=== PATIENT | female | born 1950 | race Caucasian/White ===

== ENCOUNTER 2018-09-11 21:44 | Emergency (ER) | payer MEDICARE ==
[~2018-09-11] VITALS: Ht 162.6 cm; Wt 76.7 kg
[~2018-09-11 21:44] MED LIST: ATENOLOL50 MG PO; CEFUROXIME250 MG PO; CIPROFLOXACIN500 MG PO; Captopril PO; FLAGYL500 MG PO; PEPCID20 MG PO; ULTRACET TABLE1 EACH PO
[2018-09-11] MEDS ORDERED: LISINOPRIL 10 MG TAB ONE (22:07)
[2018-09-11] MEDS ORDERED: LISINOPRIL 10 MG TAB PO ONE (22:15)
[2018-09-11 22:23] LABS: CLARITY,URINE CLEAR (CLEAR); COLOR,URINE YELLOW (YELLOW)
[2018-09-11 22:24] LABS: BILIRUBIN,URINE NEGATIVE (NEGATIVE); KETONES,URINE NEGATIVE (NEGATIVE); LEUKOCYTE ESTERASE ,URINE NEGATIVE (NEGATIVE); NITRITE,URINE NEGATIVE (NEGATIVE); PROTEIN,URINE DIPSTICK NEGATIVE (NEGATIVE); URINE UROBILINOGEN 0.2 mg/dL (0.2 - 1)
--- NOTE | 2018-09-11 22:26 | Diagnostic Imaging Report ---
EXAMINATION: Head CT without contrast. HISTORY:Headache and dizziness. COMPARISON:None. TECHNIQUE: Multidetector axial images were obtained from the foramen magnum to the vertex without contrast. The images were reconstructed using brain and bone algorithms. Thin section brain images were reformatted into coronal and sagittal planes. Dose modulation, iterative reconstruction, and/or weight based adjustment of the mA/kV was utilized to reduce the radiation dose to as low as reasonably achievable. Intravenous contrast: None IMAGE QUALITY: Acceptable. FINDINGS: Skull/scalp: No lytic or blastic. lesions. No surgical changes. Parenchyma: Nonspecific bilateral frontoparietal patchy white matter hypodensity are likely related to small vessel ischemic changes. No acute hemorrhage, mass or acute major vascular territorial infarct. Arteries: No density suggestive of thrombosis. Dural sinuses: No abnormal density suggestive of thrombosis. Ventricles: No hydrocephalus or displacement. Extra-axial spaces: No abnormal density. Brain volume: Mild generalized cerebral volume loss. Craniocervical junction: No mass, Chiari malformation, or basilar invagination. Sella: Nonspecific 2 mm hyperdensity in the posterior aspect of pituitary gland may represent Rathke's cleft or adenoma. Paranasal/mastoid sinuses: Imaged portions unremarkable. IMPRESSION: No acute intracranial abnormality, particularly no acute hemorrhage or acute major vascular territorial infarct. Mild supratentorial white matter microvascular ischemic changes. Mild generalized cerebral volume loss. Signed by: Dr. Delia Garcia M.D. on 09/11/2018 10:23 PM
[2018-09-11 23:01] LABS: BACTERIA,URINE FEW /HPF; EPITHELIAL CELLS,URINE FEW /LPF; RBC,URINE 0-5 /HPF (0-5); WBC,URINE (MAN) 0-5 /HPF (0-5)
[2018-09-11 23:34] VITALS: BP 177/80
== END 2018-09-11 23:39 | disposition home or self-care (01) ==
LOC: ER 21:44
DX: R42 Dizziness and giddiness (principal); I10 Essential (primary) hypertension
CPT/HCPCS: 70450; 81001; 99283

== ENCOUNTER 2018-10-02 02:50 | Emergency (ER) | payer MEDICARE ==
[~2018-10-02] VITALS: Ht 162.6 cm; Wt 76.7 kg
--- OUTSIDE RECORDS SUMMARY | 2018-10-02 02:54 | XMS REPORT ---
Author Author [facility] Address Unknown Phone Unavailable Care Team Providers Care Civil Cad Tech Name Role Phone Ozzie SALAS Unavailable Unavailable Problems This patient has no known problems. Allergies, Adverse Reactions, Alerts This patient has no known allergies or adverse reactions. Medications This patient has no known medications. Results Test Description Test Time Test Comments Text Results Atomic Results Result Comments CT BRAIN WO 2018-09-11 22:18:00 [facility] [address] [address] Patient Name: TAWANNA GAO MR #: [id number] : 1950 Age/Sex: 68/F Req #: [id number] Adm Physician: Ordered by: CARRILLO SALAS MD Report #: [id number] Location: ER Room/Bed: Procedure: [id number] CT/CT BRAIN WO Exam Date: 09/11/18 Exam Time: 2208 REPORT STATUS: Signed EXAMINATION: Head CT without contrast. HISTORY:Headache and dizziness. COMPARISON:None. TECHNIQUE: Multidetector axial images were obtained from the foramen magnum to the vertex without contrast. The images were reconstructed using brain and bone algorithms. Thin section brain images were reformatted into coronal and sagittal planes. Dose modulation, iterative reconstruction, and/or weight based adjustment of the mA/kV was utilized to reduce the radiation dose to as low as reasonably achievable. Intravenous contrast: None IMAGE QUALITY: Acceptable. FINDINGS: Skull/scalp: No lytic or blastic. lesions. No surgical changes. Parenchyma: Nonspecific bilateral frontoparietal patchy white matter hypodensity are likely related to small vessel ischemic changes. No acute hemorrhage, mass or acute major vascular territorial infarct. Arteries: No density suggestive of thrombosis. Dural sinuses: No abnormal density suggestive of thrombosis. Ventricles: No hydrocephalus or displacement. Extra-axial spaces: No abnormal density. Brain volume: Mild generalized cerebral volume loss. Craniocervical junction: No mass, Chiari malformation, or basilar invagination. Sella: Nonspecific 2 mm hyperdensity in the posterior aspect of pituitary gland may represent Rathke's cleft or adenoma. Paranasal/mastoid sinuses: Imaged portions unremarkable. IMPRESSION: No acute intracranial abnormality, particularly no acute hemorrhage or acute major vascular territorial infarct. Mild supratentorial white matter microvascular ischemic changes. Mild generalized cerebral volume loss. Signed by: Dr. Delia Chauhan M.D. on 09/11/2018 10:23 PM Dictated By: DELIA CHAUHAN MD 22 Transcribed By: NICOLE on 09/11/182222 COPY TO: CARRILLO SALAS MD
== END 2018-10-02 03:15 | disposition left against medical advice (07) ==
LOC: ER 02:50
DX: I10 Essential (primary) hypertension (principal)

== ENCOUNTER 2019-01-13 09:54 | Emergency (ER) | payer MEDICARE ==
[~2019-01-13] VITALS: Ht 162.6 cm; Wt 76.7 kg
[2019-01-13] MEDS ORDERED: HYDROCHLOROTHIA25 MG PO (11:37)
[2019-01-13 11:49] VITALS: BP 168/67
[2019-01-14] MEDS ORDERED: HYDROCHLOROTHIAZIDE 25 MG TAB PO ONE (09:00)
== END 2019-01-13 12:13 | disposition home or self-care (01) ==
LOC: ER 09:54
DX: I10 Essential (primary) hypertension (principal)
CPT/HCPCS: 99283

== ENCOUNTER 2019-02-23 23:50 | Emergency (ER) | payer MEDICARE ==
[~2019-02-23] VITALS: Ht 162.6 cm; Wt 76.7 kg
[~2019-02-23 23:50] MED LIST changes: +HYDROCHLOROTHIA25 MG PO
[2019-02-24] MEDS: HYDRALAZINE HCL 25 MG TAB PO ONE (00:19)
[2019-02-24 01:09] VITALS: BP 138/58
== END 2019-02-24 01:15 | disposition home or self-care (01) ==
LOC: ER 23:50
DX: I16.0 Hypertensive urgency (principal); I10 Essential (primary) hypertension; R00.1 Bradycardia, unspecified
CPT/HCPCS: 93005; 99283

== ENCOUNTER 2019-02-24 05:50 | Emergency (ER) | payer MEDICARE ==
[~2019-02-24] VITALS: Ht 162.6 cm; Wt 76.7 kg
[2019-02-24 06:22] VITALS: BP 160/87
== END 2019-02-24 06:29 | disposition home or self-care (01) ==
LOC: ER 05:50
DX: I10 Essential (primary) hypertension (principal); K58.9 Irritable bowel syndrome, unspecified
CPT/HCPCS: 99283

== ENCOUNTER 2019-05-29 11:16 | Emergency (ER) | payer MEDICARE ==
[~2019-05-29] VITALS: Ht 162.6 cm; Wt 76.7 kg
[2019-05-29 12:03] LABS: BILIRUBIN,URINE NEGATIVE (NEGATIVE); COLOR,URINE YELLOW (YELLOW); KETONES,URINE NEGATIVE (NEGATIVE); LEUKOCYTE ESTERASE ,URINE MODERATE (NEGATIVE); NITRITE,URINE NEGATIVE (NEGATIVE); PROTEIN,URINE DIPSTICK NEGATIVE (NEGATIVE); URINE UROBILINOGEN 0.2 mg/dL (0.2 - 1)
[2019-05-29 12:04] LABS: CLARITY,URINE CLEAR (CLEAR)
[2019-05-29 12:16] LABS: BACTERIA,URINE FEW /HPF; EPITHELIAL CELLS,URINE FEW /LPF; RBC,URINE 0-5 /HPF (0-5); WBC,URINE (MAN) 0-5 /HPF (0-5)
[2019-05-29 12:47] VITALS: BP 169/68
== END 2019-05-29 13:12 | disposition home or self-care (01) ==
LOC: ER 11:16
DX: R30.0 Dysuria (principal); K21.9 Gastro-esophageal reflux disease without esophagitis; I10 Essential (primary) hypertension
CPT/HCPCS: 81001; 87086; 99282

== ENCOUNTER 2019-08-03 15:48 | Emergency (ER) | payer MEDICARE ==
[~2019-08-03] VITALS: Ht 162.6 cm; Wt 76.7 kg
[2019-08-03] MEDS ORDERED: HYDRALAZINE HCL 20 MG/ML VIAL IV STA (16:06)
[2019-08-03 16:33] LABS: BASOPHILS % 0.4 % (0.0-1.0); EOSINOPHILS # (AUTO) 0.1 (0.0-0.4); HEMATOCRIT 40.8 % (34.2-44.1); HEMOGLOBIN 13.4 g/dL (12.0-16.0); LYMPHOCYTES # (AUTO) 1.4 (1.0-3.2); LYMPHOCYTES % 26.2 % (18.0-39.1); MEAN CORPUSCULAR HGB CONC 32.8 g/dL (31-35); MEAN CORPUSCULAR VOLUME 88.3 fL (81-99); MONOCYTES # (AUTO) 0.5 (0.2-0.8); MONOCYTES % 8.3 % (4.4-11.3); NEUTROPHILS # (AUTO) 3.4 (2.1-6.9); NEUTROPHILS % 62.9 % (38.7-80.0); PLATELET COUNT 253 x10e3/uL (140-360); RED BLOOD COUNT 4.62 x10e6/uL (3.6-5.1); RED CELL DISTRIBUTION WIDTH 12.5 % (11.7-14.4)
[2019-08-03 16:53] LABS: ALANINE AMINOTRANSFERASE 21 IU/L (0-55); ALBUMIN/GLOBULIN RATIO 1.4 (0.8-2.0); ALKALINE PHOSPHATASE 69 IU/L (40-150); ANION GAP 13.9 mmol/L (8-16); BLOOD UREA NITROGEN 11 mg/dL (7-26); BUN/CREATININE RATIO 15 (6-25); CALCIUM 9.9 mg/dL (8.4-10.2); CARBON DIOXIDE 29 mmol/L (22-29); CHLORIDE 97 mmol/L (98-107); CREATINE KINASE 93 IU/L (29-168); CREATININE, SERUM 0.71 mg/dL (0.57-1.11); EST GLOMERULAR FILTRATION RATE > 60 ML/MIN (60-); GLUCOSE 95 mg/dL (74-118); POTASSIUM 3.9 mmol/L (3.5-5.1); SODIUM 136 mmol/L (136-145)
[2019-08-03] MEDS ORDERED: AMLODIPINE BESYLATE 5 MG TAB PO ONE (17:00)
[2019-08-03 17:31] LABS: BILIRUBIN,URINE NEGATIVE (NEGATIVE); CLARITY,URINE HAZY (CLEAR); COLOR,URINE YELLOW (YELLOW); KETONES,URINE NEGATIVE (NEGATIVE); LEUKOCYTE ESTERASE ,URINE SMALL (NEGATIVE); NITRITE,URINE NEGATIVE (NEGATIVE); PROTEIN,URINE DIPSTICK NEGATIVE (NEGATIVE); URINE UROBILINOGEN 0.2 mg/dL (0.2 - 1)
[2019-08-03 17:32] LABS: BACTERIA,URINE FEW /HPF; EPITHELIAL CELLS,URINE FEW /LPF
[2019-08-03] MEDS ORDERED: CEFTRIAXONE SOD 1 GM VIAL IV ONE (17:45)
[2019-08-03] MEDS ORDERED: CEFTRIAXONE SOD 1 GM/NS 50 ML 50 ML IV ONE (18:00)
== END 2019-08-03 18:19 | disposition home or self-care (01) ==
LOC: ER 15:48
DX: R51 Headache (principal); I10 Essential (primary) hypertension; K21.9 Gastro-esophageal reflux disease without esophagitis
CPT/HCPCS: 36415; 80053; 81001; 82550; 82553; 83880; 84484; 85025; 87400; 93005; 99284; J0360; J0696

== ENCOUNTER 2019-08-05 05:16 | Emergency (ER) | payer MEDICARE ==
[~2019-08-05] VITALS: Ht 162.6 cm; Wt 76.7 kg
[2019-08-05] MEDS ORDERED: CLONIDINE HCL 0.2 MG TAB PO ONE (05:30)
[2019-08-05 06:22] VITALS: BP 125/72
== END 2019-08-05 06:20 | disposition home or self-care (01) ==
LOC: ER 05:16
DX: I16.0 Hypertensive urgency (principal); K21.9 Gastro-esophageal reflux disease without esophagitis; K58.9 Irritable bowel syndrome, unspecified
CPT/HCPCS: 99282

== ENCOUNTER 2020-09-12 00:46 | Observation (INO) | payer MEDICARE ==
[~2020-09-12] VITALS: Ht 162.6 cm; Wt 76.7 kg
[2020-09-12] MEDS ORDERED: LIDOCAINE 1% W/EPINEPHRINE 20 ML VIAL ONE ×2 (00:58→15:07)
[2020-09-12] MEDS ORDERED: LIDOCAINE/PRILOCAINE 2.5-2.5% KIT ONE (01:22)
[2020-09-12 01:38] LABS: INR 0.95; PROTHROMBIN TIME 13.2 seconds (11.9-14.5)
[2020-09-12 01:45] LABS: BASOPHILS % 0.6 % (0.0-1.0); EOSINOPHILS # (AUTO) 0.2 (0.0-0.4); EOSINOPHILS % 2.5 % (0.0-6.0); HEMATOCRIT 39.4 % (34.2-44.1); HEMOGLOBIN 12.9 g/dL (12.0-16.0); LYMPHOCYTES # (AUTO) 1.7 (1.0-3.2); LYMPHOCYTES % 26.8 % (18.0-39.1); MEAN CORPUSCULAR HEMOGLOBIN 29.5 pg (28-32); MEAN CORPUSCULAR HGB CONC 32.7 g/dL (31-35); MONOCYTES # (AUTO) 0.6 (0.2-0.8); MONOCYTES % 9.7 % (4.4-11.3); NEUTROPHILS # (AUTO) 3.8 (2.1-6.9); NEUTROPHILS % 60.2 % (38.7-80.0); PLATELET COUNT 215 x10e3/uL (140-360); RED BLOOD COUNT 4.38 x10e6/uL (3.6-5.1); RED CELL DISTRIBUTION WIDTH 12.5 % (11.7-14.4)
[2020-09-12 01:48] LABS: ALANINE AMINOTRANSFERASE 28 IU/L (0-55); ALBUMIN 4.2 g/dL (3.5-5.0); ALBUMIN/GLOBULIN RATIO 1.4 (0.8-2.0); ALKALINE PHOSPHATASE 79 IU/L (40-150); ANION GAP 14.3 mmol/L (8-16); BLOOD UREA NITROGEN 16 mg/dL (7-26); BUN/CREATININE RATIO 22 (6-25); CALCIUM 9.3 mg/dL (8.4-10.2); CARBON DIOXIDE 28 mmol/L (22-29); CHLORIDE 102 mmol/L (98-107); CREATININE, SERUM 0.74 mg/dL (0.57-1.11); EST GLOMERULAR FILTRATION RATE > 60 ML/MIN (60-); GLUCOSE 103 mg/dL (74-118); POTASSIUM 4.3 mmol/L (3.5-5.1); SODIUM 140 mmol/L (136-145)
[2020-09-12] MEDS ORDERED: LACTATED RINGER'S 1,000 ML ONE (03:01)
[2020-09-12 05:24] LABS: HEMATOCRIT 35.9 % (34.2-44.1); HEMOGLOBIN 11.6 g/dL (12.0-16.0)
[2020-09-12 07:36] VITALS: BP 162/61
[2020-09-12 11:19] VITALS: BP 158/62
[2020-09-12] MEDS ORDERED: PROPOFOL IV EMULSION 10 MG/ML 20 ML VIAL ONE (13:32)
[2020-09-12] MEDS ORDERED: ONDANSETRON HCL INJ 2MG/ML 2ML 2 MG/ML VIAL ONE (13:32)
[2020-09-12] MEDS ORDERED: SEVOFLURANE INHAL SOLN 250 ML PEN BTL ONE (13:32)
[2020-09-12] MEDS ORDERED: LIDOCAINE HCL 2% LOCAL INJ 5 ML SDV VIAL INJ ONE (13:32)
[2020-09-12] MEDS ORDERED: EPHEDRINE SULFATE INJ 50 MG/ML VIAL ONE (13:32)
[2020-09-12] MEDS ORDERED: FENTANYL CITRATE/PF 100MCG/2 ML INJ ONE (13:40)
[2020-09-12] MEDS ORDERED: LEVOFLOXACIN 500MG/D5W 100ML 100 ML IV ONE (14:00)
[2020-09-12] MEDS ORDERED: CLINDAMYCIN 600MG / 50ML 50 ML IV ONE (14:00)
[2020-09-12] MEDS ORDERED: VANCOMYCIN 1GM/NS 250 ML 250 ML IV ONE (14:00)
[2020-09-12] MEDS ORDERED: HYDROGEN PEROXIDE 120 ML BTL ONE (14:14)
[2020-09-12] MEDS ORDERED: BUPIVACAINE 0.25% 30ML SDV ONE (14:14)
[2020-09-12] MEDS ORDERED: ACETAMINOPHEN 1000 MG/100 ML 100 ML IV ONE (14:44)
[2020-09-12] MEDS ORDERED: MUPIROCIN 2% OINT 22 GM TUBE ONE (15:42)
[2020-09-12] MEDS ORDERED: TRAMADOL HCL 50 MG TAB PO PRN (16:00)
[2020-09-12] MEDS ORDERED: PANTOPRAZOLE 40 MG 10ML VIAL IV SCH (16:00)
[2020-09-12] MEDS ORDERED: ONDANSETRON HCL INJ 2MG/ML 2ML 2 MG/ML VIAL IV PRN ×2 (16:00)
[2020-09-12 16:30] VITALS: BP 146/59
[2020-09-12] MEDS: DEXTROSE 5%/LACTATED RINGERS 1,000 ML IV SCH (16:31)
[2020-09-12 17:07] VITALS: BP 146/59
[2020-09-12] MEDS: VANCOMYCIN 1GM/NS 250 ML 250 ML IV SCH (18:00)
[2020-09-12] MEDS ORDERED: PIPERACILLIN/TAZOBAC 3.375 GM in SODIUM CHLORIDE 0.9% 50ML 50 ML IV SCH (18:00)
[2020-09-12] MEDS ORDERED: COREG3.125 MG PO (18:50)
[2020-09-12] MEDS ORDERED: LOSARTAN POTASS25 MG PO (18:50)
[2020-09-12 20:00] VITALS: BP 130/63
[2020-09-12 20:30] VITALS: BP 130/63
[2020-09-12] MEDS ORDERED: CHLORASEPTIC SPRAY 177 ML BTL MM PRN (20:30)
[2020-09-12] MEDS: CEPACOL SORE THROAT LOZENGES PO PRN (20:50)
[2020-09-12] MEDS ORDERED: HYDRALAZINE HCL 20 MG/ML VIAL IV PRN (22:00)
[2020-09-12] MEDS: PIPERACILLIN/TAZOBAC 3.375 GM in SODIUM CHLORIDE 0.9% 50ML 50 ML IV SCH (23:20)
[2020-09-13] VITALS: BP 133/55
[2020-09-13] MEDS: CEPACOL SORE THROAT LOZENGES PO PRN (00:50)
[2020-09-13 04:00] VITALS: BP 142/73
[2020-09-13] MEDS: VANCOMYCIN 1GM/NS 250 ML 250 ML IV SCH ×2 (04:53→16:47)
[2020-09-13 05:23] LABS: BASOPHILS % 0.7 % (0.0-1.0); EOSINOPHILS # (AUTO) 0.1 (0.0-0.4); EOSINOPHILS % 2.6 % (0.0-6.0); HEMATOCRIT 33.8 % (34.2-44.1); HEMOGLOBIN 10.8 g/dL (12.0-16.0); LYMPHOCYTES # (AUTO) 1.5 (1.0-3.2); LYMPHOCYTES % 27.8 % (18.0-39.1); MEAN CORPUSCULAR HEMOGLOBIN 29.8 pg (28-32); MEAN CORPUSCULAR VOLUME 93.1 fL (81-99); MONOCYTES # (AUTO) 0.6 (0.2-0.8); MONOCYTES % 10.3 % (4.4-11.3); NEUTROPHILS # (AUTO) 3.2 (2.1-6.9); NEUTROPHILS % 58.4 % (38.7-80.0); PLATELET COUNT 189 x10e3/uL (140-360); RED BLOOD COUNT 3.63 x10e6/uL (3.6-5.1); RED CELL DISTRIBUTION WIDTH 12.6 % (11.7-14.4)
[2020-09-13] MEDS: PIPERACILLIN/TAZOBAC 3.375 GM in SODIUM CHLORIDE 0.9% 50ML 50 ML IV SCH ×2 (06:38→14:46)
[2020-09-13 07:26] VITALS: BP 153/70
[2020-09-13 09:45] VITALS: BP 153/70
[2020-09-13 11:35] VITALS: BP 146/63
[2020-09-13] MEDS: DEXTROSE 5%/LACTATED RINGERS 1,000 ML IV SCH (11:46)
[2020-09-13] MEDS ORDERED: KEFLEX125 MG/5 M PO (15:24)
[2020-09-13 15:58] VITALS: BP 181/73
== END 2020-09-13 18:50 | disposition home or self-care (01) ==
LOC: ER 01:06 → ERHOLD 05:23 → MED/SURG 07:04
PROVIDERS: ADMIT Internal Medicine; ATTEND Internal Medicine
DX: S01.01XA Laceration without foreign body of scalp, initial encounter (principal); Y93.89 Activity, other specified; K21.9 Gastro-esophageal reflux disease without esophagitis; W10.8XXA Fall (on) (from) other stairs and steps, initial encounter; Y92.019 Unspecified place in single-family (private) house as the place of occurrence of the external cause; I10 Essential (primary) hypertension; Z88.2 Allergy status to sulfonamides; Z88.8 Allergy status to other drugs, medicaments and biological substances; Z90.49 Acquired absence of other specified parts of digestive tract; D62 Acute posthemorrhagic anemia; Z20.822 Contact with and (suspected) exposure to COVID-19; W01.198A Fall on same level from slipping, tripping and stumbling with subsequent striking against other object, initial encounter
CPT/HCPCS: 12001; 13121; 36415 ×2; 70450; 71045; 72125; 72170; 80053; 85014; 85018; 85025 ×2; 85610; 86850; 86900; 93005; 99284; C9113; G0378 ×2; J0131; J1956; J2001; J2405; J2543 ×2; J2704; J3010; J3370 ×2; J7121 ×3; U0002

== ENCOUNTER 2020-12-13 13:57 | Inpatient (IN) | payer MEDICARE ==
[~2020-12-13] VITALS: Ht 160 cm; Wt 79.4 kg
[~2020-12-13 13:57] MED LIST changes: +COREG3.125 MG PO; +KEFLEX125 MG/5 M PO; +LOSARTAN POTASS25 MG PO; +PHENYLEPHRINE HCL 1% 10 MG/ML VIAL ONE
[2020-12-13] MEDS ORDERED: SODIUM CHLORIDE 0.9% 1000ML 1,000 ML IV STA (14:27)
[2020-12-13 14:46] LABS: BASOPHILS % 0.2 % (0.0-1.0); EOSINOPHILS % 0.1 % (0.0-6.0); HEMATOCRIT 41.9 % (34.2-44.1); HEMOGLOBIN 13.9 g/dL (12.0-16.0); LYMPHOCYTES % 5.1 % (18.0-39.1); MEAN CORPUSCULAR HEMOGLOBIN 29.2 pg (28-32); MEAN CORPUSCULAR HGB CONC 33.2 g/dL (31-35); MONOCYTES % 5.3 % (4.4-11.3); NEUTROPHILS # (AUTO) 16.6 (2.1-6.9); NEUTROPHILS % 88.8 % (38.7-80.0); PLATELET COUNT 230 x10e3/uL (140-360); RED BLOOD COUNT 4.76 x10e6/uL (3.6-5.1); RED CELL DISTRIBUTION WIDTH 13.2 % (11.7-14.4)
[2020-12-13 15:04] LABS: ALBUMIN 3.8 g/dL (3.5-5.0); ANION GAP 16.7 mmol/L (8-16); CALCIUM 9.3 mg/dL (8.4-10.2); CREATININE, SERUM 1.74 mg/dL (0.57-1.11); POTASSIUM 3.7 mmol/L (3.5-5.1)
[2020-12-13 17:27] LABS: CLARITY,URINE CLOUDY (CLEAR); COLOR,URINE YELLOW (YELLOW); KETONES,URINE TRACE (NEGATIVE); LEUKOCYTE ESTERASE ,URINE TRACE (NEGATIVE); NITRITE,URINE NEGATIVE (NEGATIVE); PROTEIN,URINE DIPSTICK 2+ (NEGATIVE); URINE UROBILINOGEN 0.2 mg/dL (0.2 - 1)
[2020-12-13] MEDS ORDERED: NITROFURANTOIN100 M1 (17:29)
[2020-12-13] MEDS ORDERED: AMLODIPINE BESYL5 MG PO (17:29)
[2020-12-13] MEDS ORDERED: SODIUM CHLORIDE 0.9% 1000ML 1,000 ML IV SCH (17:30)
[2020-12-13] MEDS ORDERED: ONDANSETRON HCL INJ 2MG/ML 2ML 2 MG/ML VIAL IV PRN (17:30)
[2020-12-13] MEDS ORDERED: MORPHINE SULFATE INJ 4 MG/ML INJ 1ML IV PRN (17:30)
[2020-12-13] MEDS ORDERED: MORPHINE SULFATE INJ 2 MG/ML SYR IV PRN (17:30)
[2020-12-13 17:33] LABS: RBC,URINE 0-5 /HPF (0-5)
[2020-12-13 17:34] LABS: BACTERIA,URINE MODERATE /HPF; EPITHELIAL CELLS,URINE FEW /LPF
[2020-12-13] MEDS: CEFEPIME 1 GM in SODIUM CHLORIDE 0.9% 50ML 50 ML IV SCH (18:00)
[2020-12-13 20:45] VITALS: BP 123/89
[2020-12-13] MEDS: METRONIDAZOLE 500MG/NS 100ML 100 ML IV SCH (22:13)
[2020-12-13] MEDS: SODIUM CHLORIDE 0.9% 1000ML 1,000 ML IV SCH (22:13)
[2020-12-13 22:22] VITALS: BP_SYST 119; BP_SYST 123; BP_DIAS 65; BP_DIAS 89
[2020-12-13 22:26] VITALS: BP 119/65
[2020-12-14] VITALS (9 sets, daily range): BP systolic 122–153; BP diastolic 50–77
[2020-12-14 05:12] LABS: BASOPHILS % 0.1 % (0.0-1.0); EOSINOPHILS # (AUTO) 0.1 (0.0-0.4); EOSINOPHILS % 0.6 % (0.0-6.0); HEMATOCRIT 39.2 % (34.2-44.1); HEMOGLOBIN 12.6 g/dL (12.0-16.0); LYMPHOCYTES # (AUTO) 1.2 (1.0-3.2); LYMPHOCYTES % 9.5 % (18.0-39.1); MEAN CORPUSCULAR HEMOGLOBIN 28.6 pg (28-32); MEAN CORPUSCULAR HGB CONC 32.1 g/dL (31-35); MEAN CORPUSCULAR VOLUME 88.9 fL (81-99); MONOCYTES # (AUTO) 0.5 (0.2-0.8); MONOCYTES % 4.4 % (4.4-11.3); NEUTROPHILS # (AUTO) 10.4 (2.1-6.9); NEUTROPHILS % 84.8 % (38.7-80.0); PLATELET COUNT 234 x10e3/uL (140-360); RED BLOOD COUNT 4.41 x10e6/uL (3.6-5.1); RED CELL DISTRIBUTION WIDTH 13.2 % (11.7-14.4)
[2020-12-14] MEDS: CEFEPIME 1 GM in SODIUM CHLORIDE 0.9% 50ML 50 ML IV SCH ×2 (05:23→17:08)
[2020-12-14 05:26] LABS: ALBUMIN 3.1 g/dL (3.5-5.0); ALBUMIN/GLOBULIN RATIO 0.9 (0.8-2.0); ANION GAP 15.5 mmol/L (8-16); CALCIUM 8.4 mg/dL (8.4-10.2); CREATININE, SERUM 0.95 mg/dL (0.57-1.11); POTASSIUM 3.5 mmol/L (3.5-5.1)
[2020-12-14] MEDS: METRONIDAZOLE 500MG/NS 100ML 100 ML IV SCH ×3 (05:35→21:35)
[2020-12-14] MEDS: SODIUM CHLORIDE 0.9% 1000ML 1,000 ML IV SCH ×2 (07:15→16:41)
[2020-12-14] MEDS ORDERED: BUPIVACAINE 0.25% 30ML SDV ONE (10:13)
[2020-12-14] MEDS ORDERED: LIDOCAINE 1% W/EPINEPHRINE 20 ML VIAL ONE (10:13)
[2020-12-14] MEDS ORDERED: HYDROCODONE/APAP 7.5MG-325MG 1 EA TAB PO PRN (12:00)
[2020-12-14] MEDS ORDERED: ACETAMINOPHEN 1000 MG/100 ML IV PRN (12:00)
[2020-12-14] MEDS ORDERED: HYDROMORPHONE 1MG/1ML INJ IV PRN (12:00)
[2020-12-14] MEDS ORDERED: GLYCOPYRROLATE INJ 0.2 MG/ML VIAL ONE (12:22)
[2020-12-14] MEDS ORDERED: PROPOFOL IV EMULSION 10 MG/ML 20 ML VIAL ONE (12:22)
[2020-12-14] MEDS ORDERED: LIDOCAINE HCL 2% LOCAL INJ 5 ML SDV VIAL INJ ONE (12:22)
[2020-12-14] MEDS ORDERED: DEXAMETHASONE SOD PHOS INJ 4 MG/ML VIAL ONE (12:22)
[2020-12-14] MEDS ORDERED: ONDANSETRON HCL INJ 2MG/ML 2ML 2 MG/ML VIAL ONE (12:22)
[2020-12-14] MEDS ORDERED: ROCURONIUM BROMIDE 10 MG/ML 5ML VIAL IV ONE (12:22)
[2020-12-14] MEDS ORDERED: SEVOFLURANE INHAL SOLN 250 ML PEN BTL ONE (12:22)
[2020-12-14] MEDS ORDERED: POVIDONE IODINE 0.05% 0.05 % ML PO ONE (12:22)
[2020-12-14] MEDS ORDERED: NEOSTIGMINE 1 MG/ML 10ML VIAL ONE (12:22)
[2020-12-14] MEDS ORDERED: MIDAZOLAM HCL 2 MG/2 ML VIAL ONE (13:12)
[2020-12-14] MEDS ORDERED: FENTANYL CITRATE/PF 100MCG/2 ML INJ ONE (13:12)
[2020-12-14] MEDS ORDERED: HYDRALAZINE HCL 20 MG/ML VIAL IV PRN (15:00)
[2020-12-14] MEDS ORDERED: ACETAMINOPHEN 325 MG TAB PO PRN (15:00)
[2020-12-14] MEDS: CARVEDILOL 3.125 MG TAB PO SCH (17:08)
[2020-12-15] MEDS: SODIUM CHLORIDE 0.9% 1000ML 1,000 ML IV SCH ×2 (03:15→13:12)
[2020-12-15 04:00] VITALS: BP 132/69
[2020-12-15] MEDS: CEFEPIME 1 GM in SODIUM CHLORIDE 0.9% 50ML 50 ML IV SCH ×2 (05:31→17:16)
[2020-12-15] MEDS: METRONIDAZOLE 500MG/NS 100ML 100 ML IV SCH ×3 (05:31→21:14)
[2020-12-15 07:45] VITALS: BP 130/64
[2020-12-15 08:58] LABS: BASOPHILS % 0.1 % (0.0-1.0); LYMPHOCYTES # (AUTO) 0.6 (1.0-3.2); LYMPHOCYTES % 5.3 % (18.0-39.1); MEAN CORPUSCULAR HEMOGLOBIN 29.3 pg (28-32); MEAN CORPUSCULAR HGB CONC 32.4 g/dL (31-35); MEAN CORPUSCULAR VOLUME 90.2 fL (81-99); MONOCYTES # (AUTO) 0.3 (0.2-0.8); MONOCYTES % 2.8 % (4.4-11.3); NEUTROPHILS # (AUTO) 10.2 (2.1-6.9); NEUTROPHILS % 91.1 % (38.7-80.0); PLATELET COUNT 214 x10e3/uL (140-360); RED CELL DISTRIBUTION WIDTH 13.5 % (11.7-14.4)
[2020-12-15 09:00] VITALS: BP 130/64
[2020-12-15 09:30] LABS: ANION GAP 13.6 mmol/L (8-16); BLOOD UREA NITROGEN 15 mg/dL (7-26); BUN/CREATININE RATIO 19 (6-25); CALCIUM 8.3 mg/dL (8.4-10.2); CARBON DIOXIDE 22 mmol/L (22-29); CHLORIDE 109 mmol/L (98-107); CREATININE, SERUM 0.79 mg/dL (0.57-1.11); EST GLOMERULAR FILTRATION RATE > 60 ML/MIN (60-); GLUCOSE 189 mg/dL (74-118); POTASSIUM 3.6 mmol/L (3.5-5.1); SODIUM 141 mmol/L (136-145)
[2020-12-15] MEDS: AMLODIPINE BESYLATE 5 MG TAB PO SCH (10:13)
[2020-12-15] MEDS: CARVEDILOL 3.125 MG TAB PO SCH ×2 (10:14→17:12)
[2020-12-15 11:53] VITALS: BP 141/69
[2020-12-15 15:50] VITALS: BP 140/76
[2020-12-15 19:56] VITALS: BP 142/67
[2020-12-15] MEDS: BISACODYL 10 MG SUPP PR SCH (21:14)
[2020-12-16] VITALS (8 sets, daily range): BP systolic 128–160; BP diastolic 60–99
[2020-12-16] MEDS: SODIUM CHLORIDE 0.9% 1000ML 1,000 ML IV SCH ×2 (00:43→12:06)
[2020-12-16] MEDS: METRONIDAZOLE 500MG/NS 100ML 100 ML IV SCH ×3 (05:25→23:13)
[2020-12-16] MEDS: CEFEPIME 1 GM in SODIUM CHLORIDE 0.9% 50ML 50 ML IV SCH ×2 (05:25→16:53)
[2020-12-16 07:01] LABS: BASOPHILS % 0.3 % (0.0-1.0); EOSINOPHILS # (AUTO) 0.1 (0.0-0.4); EOSINOPHILS % 1.1 % (0.0-6.0); HEMATOCRIT 32.1 % (34.2-44.1); HEMOGLOBIN 10.2 g/dL (12.0-16.0); LYMPHOCYTES # (AUTO) 1.3 (1.0-3.2); LYMPHOCYTES % 17.5 % (18.0-39.1); MEAN CORPUSCULAR HEMOGLOBIN 28.7 pg (28-32); MEAN CORPUSCULAR HGB CONC 31.8 g/dL (31-35); MEAN CORPUSCULAR VOLUME 90.2 fL (81-99); MONOCYTES # (AUTO) 0.6 (0.2-0.8); MONOCYTES % 8.5 % (4.4-11.3); NEUTROPHILS # (AUTO) 5.2 (2.1-6.9); NEUTROPHILS % 71.6 % (38.7-80.0); PLATELET COUNT 190 x10e3/uL (140-360); RED BLOOD COUNT 3.56 x10e6/uL (3.6-5.1); RED CELL DISTRIBUTION WIDTH 13.7 % (11.7-14.4)
[2020-12-16 07:21] LABS: ANION GAP 10.4 mmol/L (8-16); BLOOD UREA NITROGEN 11 mg/dL (7-26); BUN/CREATININE RATIO 17 (6-25); CALCIUM 7.6 mg/dL (8.4-10.2); CARBON DIOXIDE 24 mmol/L (22-29); CHLORIDE 113 mmol/L (98-107); CREATININE, SERUM 0.65 mg/dL (0.57-1.11); EST GLOMERULAR FILTRATION RATE > 60 ML/MIN (60-); GLUCOSE 100 mg/dL (74-118); POTASSIUM 3.4 mmol/L (3.5-5.1); SODIUM 144 mmol/L (136-145)
[2020-12-16] MEDS: CARVEDILOL 3.125 MG TAB PO SCH ×2 (09:27→16:51)
[2020-12-16] MEDS: AMLODIPINE BESYLATE 5 MG TAB PO SCH (09:27)
[2020-12-16] MEDS ORDERED: POTASSIUM BICARBONATE/CIT AC 20 MEQ TABLET.EFF PO ONE (10:30)
[2020-12-16] MEDS: BISACODYL 10 MG SUPP PR SCH (13:01)
[2020-12-16] MEDS: LACTOBACILLUS ACIDOPHILUS CAPSULE PO SCH (16:51)
[2020-12-17] VITALS (8 sets, daily range): BP systolic 144–173; BP diastolic 65–79
[2020-12-17] MEDS: SODIUM CHLORIDE 0.9% 1000ML 1,000 ML IV SCH ×2 (05:12→23:22)
[2020-12-17] MEDS: METRONIDAZOLE 500MG/NS 100ML 100 ML IV SCH (05:12)
[2020-12-17] MEDS: CEFEPIME 1 GM in SODIUM CHLORIDE 0.9% 50ML 50 ML IV SCH (05:12)
[2020-12-17 07:56] LABS: BASOPHILS % 0.4 % (0.0-1.0); EOSINOPHILS # (AUTO) 0.2 (0.0-0.4); EOSINOPHILS % 1.9 % (0.0-6.0); HEMATOCRIT 34.5 % (34.2-44.1); LYMPHOCYTES # (AUTO) 1.5 (1.0-3.2); MEAN CORPUSCULAR HEMOGLOBIN 28.5 pg (28-32); MEAN CORPUSCULAR HGB CONC 31.9 g/dL (31-35); MEAN CORPUSCULAR VOLUME 89.4 fL (81-99); MONOCYTES # (AUTO) 0.8 (0.2-0.8); MONOCYTES % 9.9 % (4.4-11.3); NEUTROPHILS # (AUTO) 5.4 (2.1-6.9); NEUTROPHILS % 68.2 % (38.7-80.0); PLATELET COUNT 215 x10e3/uL (140-360); RED BLOOD COUNT 3.86 x10e6/uL (3.6-5.1); RED CELL DISTRIBUTION WIDTH 13.8 % (11.7-14.4)
[2020-12-17 08:13] LABS: ANION GAP 10.6 mmol/L (8-16); BLOOD UREA NITROGEN 6 mg/dL (7-26); BUN/CREATININE RATIO 10 (6-25); CARBON DIOXIDE 27 mmol/L (22-29); CHLORIDE 106 mmol/L (98-107); EST GLOMERULAR FILTRATION RATE > 60 ML/MIN (60-); GLUCOSE 102 mg/dL (74-118); POTASSIUM 3.6 mmol/L (3.5-5.1); SODIUM 140 mmol/L (136-145)
[2020-12-17] MEDS: AMLODIPINE BESYLATE 5 MG TAB PO SCH (09:02)
[2020-12-17] MEDS: LACTOBACILLUS ACIDOPHILUS CAPSULE PO SCH ×2 (09:02→17:04)
[2020-12-17] MEDS: CARVEDILOL 3.125 MG TAB PO SCH ×2 (09:02→17:04)
[2020-12-17] MEDS ORDERED: ONDANSETRON HCL 4 MG ORAL DISINTEGRATING TAB PO PRN (16:00)
[2020-12-17] MEDS: PIPERACILLIN/TAZOBACTAM 3.375 GM in SODIUM CHLORIDE 0.9% 50ML 50 ML IV SCH (18:00)
[2020-12-18] VITALS (9 sets, daily range): BP systolic 146–166; BP diastolic 72–103
[2020-12-18] MEDS: PIPERACILLIN/TAZOBACTAM 3.375 GM in SODIUM CHLORIDE 0.9% 50ML 50 ML IV SCH ×4 (00:07→16:47)
[2020-12-18] MEDS: CARVEDILOL 3.125 MG TAB PO SCH ×2 (08:20→16:47)
[2020-12-18] MEDS: AMLODIPINE BESYLATE 5 MG TAB PO SCH (08:20)
[2020-12-18] MEDS: LACTOBACILLUS ACIDOPHILUS CAPSULE PO SCH ×2 (08:20→16:47)
[2020-12-18] MEDS ORDERED: LOPERAMIDE HCL 2 MG CAP PO PRN (14:15)
[2020-12-19 00:17] VITALS: BP 159/77
[2020-12-19] MEDS: PIPERACILLIN/TAZOBACTAM 3.375 GM in SODIUM CHLORIDE 0.9% 50ML 50 ML IV SCH ×3 (00:22→12:25)
[2020-12-19] MEDS: LACTOBACILLUS ACIDOPHILUS CAPSULE PO SCH (09:09)
[2020-12-19] MEDS: AMLODIPINE BESYLATE 5 MG TAB PO SCH (09:09)
[2020-12-19] MEDS: CARVEDILOL 3.125 MG TAB PO SCH (09:09)
[2020-12-19 12:00] VITALS: BP 124/58
== END 2020-12-19 15:15 | disposition home or self-care (01) | DRG 853 ==
LOC: ER 14:21 → ERHOLD 17:19 → IMCU 20:41 → MED/SURG3 12-17 14:14
PROVIDERS: ADMIT Internal Medicine; ATTEND Internal Medicine
PROC: 0W9G40Z Drainage of Peritoneal Cavity with Drainage Device, Percutaneous Endoscopic Approach (ICD-10-PCS; 2020-12-14)
PROC: 0DTJ4ZZ Resection of Appendix, Percutaneous Endoscopic Approach (ICD-10-PCS; principal; 2020-12-14 11:30)
DX: A41.50 Gram-negative sepsis, unspecified (principal); K35.33 Acute appendicitis with perforation, localized peritonitis, and gangrene, with abscess; N17.9 Acute kidney failure, unspecified; Z20.822 Contact with and (suspected) exposure to COVID-19; I10 Essential (primary) hypertension; K21.9 Gastro-esophageal reflux disease without esophagitis; Z88.2 Allergy status to sulfonamides; Z88.8 Allergy status to other drugs, medicaments and biological substances; Z90.49 Acquired absence of other specified parts of digestive tract; E87.6 Hypokalemia
CPT/HCPCS: 36415; 74176; 80048; 80053; 81001; 83605; 83690; 85025; 87040; 87071; 87205; 88304; 96361; 96367; 99285; C1766; J0692; J1100; J1170; J2001; J2250; J2270; J2370; J2405; J2543; J2710; J3010; J7030; Q0162; U0002

== ENCOUNTER 2024-03-17 11:26 | Emergency (ER) | payer MEDICARE ==
[~2024-03-17] VITALS: Ht 162.6 cm; Wt 81.6 kg
[~2024-03-17 11:26] MED LIST changes: +AMLODIPINE BESYL5 MG PO; +NAPROXEN250 MG PO; +NITROFURANTOIN100 M1; -PHENYLEPHRINE HCL 1% 10 MG/ML VIAL ONE; +ULTRAM 50MG50 MG PO
[2024-03-17 11:30] VITALS: TEMP 98
[2024-03-17 11:48] LABS: BASOPHILS % 0.5 % (0.0-1.0); EOSINOPHILS # (AUTO) 0.1 (0.0-0.4); EOSINOPHILS % 2.2 % (0.0-6.0); HEMATOCRIT 40.1 % (34.2-44.1); HEMOGLOBIN 12.8 g/dL (12.0-16.0); LYMPHOCYTES # (AUTO) 1.3 (1.0-3.2); LYMPHOCYTES % 21.5 % (18.0-39.1); MEAN CORPUSCULAR HEMOGLOBIN 30.3 pg (28-32); MEAN CORPUSCULAR HGB CONC 31.9 g/dL (31-35); MEAN CORPUSCULAR VOLUME 94.8 fL (81-99); MONOCYTES # (AUTO) 0.5 (0.2-0.8); MONOCYTES % 7.8 % (4.4-11.3); NEUTROPHILS % 67.8 % (38.7-80.0); PLATELET COUNT 183 x10e3/uL (140-360); RED BLOOD COUNT 4.23 x10e6/uL (3.6-5.1); RED CELL DISTRIBUTION WIDTH 12.6 % (11.7-14.4); WHITE BLOOD COUNT 5.86 x10e3/uL (4.8-10.8)
[2024-03-17 12:09] LABS: ALBUMIN 4.2 g/dL (3.5-5.0); ALBUMIN/GLOBULIN RATIO 1.6 (0.8-2.0); ANION GAP 14.1 mmol/L (8-16); BILIRUBIN,TOTAL 0.5 mg/dL (0.2-1.2); CALCIUM 9.4 mg/dL (8.4-10.2); CREATININE, SERUM 0.89 mg/dL (0.57-1.11); POTASSIUM 4.1 mmol/L (3.5-5.1); TOTAL PROTEIN 6.8 g/dL (6.5-8.1)
[2024-03-17 12:14] LABS: TROPONIN I 0.006 ng/mL (0-0.300)
[2024-03-17 13:30] VITALS: PULSE 54; RESP 17
[2024-03-17 15:04] VITALS: BP 142/74; PULSE 58; RESP 17; TEMP 98.6; O2SAT 97
== END 2024-03-17 14:59 | disposition home or self-care (01) ==
LOC: ER 11:33
DX: R07.89 Other chest pain (principal); I10 Essential (primary) hypertension; K21.9 Gastro-esophageal reflux disease without esophagitis; R94.31 Abnormal electrocardiogram [ECG] [EKG]; Z87.19 Personal history of other diseases of the digestive system
CPT/HCPCS: 36415; 71045; 80053; 84484; 85025; 93005; 99284

== ENCOUNTER 2025-03-06 11:15 | Emergency (ER) | payer MEDICARE ==
[2025-03-06 13:33] VITALS: PULSE 69; RESP 18; TEMP 98.1
[2025-03-06 14:18] VITALS: BP 151/77; PULSE 85; RESP 18; TEMP 98.2; O2SAT 96
== END 2025-03-06 14:19 | disposition home or self-care (01) ==
LOC: ER 11:43
DX: M25.561 Pain in right knee (principal); W18.39XA Other fall on same level, initial encounter; Y93.01 Activity, walking, marching and hiking; Y92.89 Other specified places as the place of occurrence of the external cause; I10 Essential (primary) hypertension; Z87.19 Personal history of other diseases of the digestive system
CPT/HCPCS: 93971; 99283